=== PATIENT | female | born 1950 | race Asian ===

== ENCOUNTER 2016-09-18 13:05 | Outpatient (RCR) | payer MEDICARE, BC ==
[~2016-09-18 13:05] MED LIST: ALDACTONE 25MG25 M1 PO; FELODIPINE ER2.5 MG PO; FELODIPINE5 MG PO; LASIX10 MG/M1 PO; MULTIPLE VITAMI1 CAP PO; PHENERGAN W/CO120 ML PO; PLAVIX 75MG TAB75 MG PO; ST. JOHN'S WOR150 MG PO; SYNTHROID0.025 MG PO; ZITHROMAX 250M250 MG PO; ZOCOR5 MG PO
== END 2016-09-19 09:25 | disposition home or self-care (01) ==
LOC: MKS.ESL.PT 13:05
DX: H81.12 Benign paroxysmal vertigo, left ear (principal)
CPT/HCPCS: G8990-GP; G8991-GP; G8992-GP

== ENCOUNTER 2017-07-24 16:38 | Observation (INO) | payer MEDICARE, BC ==
[~2017-07-24] VITALS: Ht 160 cm; Wt 62.4 kg
[2017-07-24 17:27] LABS: MEAN CELL VOLUME 85 fl (80.0-100.0); MEAN CORPUSCULAR HGB CONC 34 g/dl (33.0-37.0); MEAN PLATELET VOLUME 10.9 fl (7.4-10.4); PARTIAL THROMBOPLASTIN TIME 25.6 SECONDS (26.0-37.0); PLATELET COUNT 74 K/mm3 (130-400); RED BLOOD COUNT 3.92 M/mm3 (4.10-5.30); REDCELL DISTRIBUTION WIDTH-CV 13.1 % (11.5-14.5)
[2017-07-24 17:28] LABS: HEMATOCRIT 33.4 % (37.0-47.0); HEMOGLOBIN 11.2 g/dl (12.5-16.0); MEAN CORPUSCULAR HEMOGLOBIN 29 pg (27.0-31.0)
[2017-07-24 17:32] LABS: ALANINE AMINOTRANSFERASE 34 U/L (9-52); ALBUMIN 4.9 gm/dL (3.5-5.0); ALKALINE PHOSPHATASE 269 U/L (50-136); ANION GAP 11 mmol/L (7-16); AST,SGOT 59 U/L (15-37); BILIRUBIN,TOTAL 0.3 mg/dL (0.0-1.0); BLOOD UREA NITROGEN 8 mg/dL (7-17); CALCIUM 9.6 mg/dL (8.4-10.2); CARBON DIOXIDE 25 mmol/L (22-30); CHLORIDE 97 mmol/L (98-107); GLUCOSE 172 mg/dL (74-106); LIPASE 232 U/L (23-300); POTASSIUM 3.7 mmol/L (3.4-5.0); SODIUM 133 mmol/L (137-145); TOTAL PROTEIN 8.1 gm/dL (6.4-8.2)
[2017-07-24 17:45] LABS: BAND 2 % (0-10); NEUTROPHILS 31 % (42.0-75.2)
[2017-07-24 17:46] LABS: LYMPHOCYTE 62 % (20.0-51.0); PLATELET ESTIMATE DECREASED (NORMAL)
[2017-07-24 17:50] LABS: TROPONIN-I < 0.012 ng/mL (0.000-0.034)
[2017-07-24 21:51] VITALS: BP 143/67; PULSE 82; TEMP 97.8
[2017-07-24 21:52] VITALS: BP 143/67; PULSE 82; TEMP 97.8
[2017-07-24] MEDS ORDERED: SYNTHROID0.05 MG/TA PO (22:22)
[2017-07-24] MEDS ORDERED: NORVASC2.5 MG PO (22:23)
[2017-07-24] MEDS ORDERED: BYSTOLIC10 MG PO (22:25)
[2017-07-24 23:57] VITALS: BP 147/72; PULSE 81; TEMP 97.5
[2017-07-25 01:15] LABS: C-REACTIVE PROTEIN 1.7 mg/dL (0.0-0.9)
[2017-07-25 03:18] VITALS: BP 122/56; PULSE 84; TEMP 97.7
[2017-07-25 06:57] LABS: MEAN CELL VOLUME 86 fl (80.0-100.0); MEAN CORPUSCULAR HGB CONC 34 g/dl (33.0-37.0); MEAN PLATELET VOLUME 10.8 fl (7.4-10.4); PLATELET COUNT 76 K/mm3 (130-400); RED BLOOD COUNT 3.85 M/mm3 (4.10-5.30); REDCELL DISTRIBUTION WIDTH-CV 13.1 % (11.5-14.5)
[2017-07-25 06:58] LABS: HEMATOCRIT 32.9 % (37.0-47.0); HEMOGLOBIN 11.1 g/dl (12.5-16.0); MEAN CORPUSCULAR HEMOGLOBIN 29 pg (27.0-31.0)
[2017-07-25 07:13] LABS: ALANINE AMINOTRANSFERASE 31 U/L (9-52); ALBUMIN 4.5 gm/dL (3.5-5.0); ALKALINE PHOSPHATASE 275 U/L (50-136); AST,SGOT 35 U/L (15-37); LACTATE DEHYDROGENASE 603 U/L (313-618); TOTAL PROTEIN 7.5 gm/dL (6.4-8.2)
[2017-07-25 07:23] LABS: TROPONIN-I < 0.012 ng/mL (0.000-0.034)
[2017-07-25 07:39] LABS: BAND 8 % (0-10); LYMPHOCYTE 41 % (20.0-51.0); METAMYELOCYTE 1 % (0-0); NEUTROPHILS 43 % (42.0-75.2); PLATELET ESTIMATE DECREASED (NORMAL)
[2017-07-25 07:41] LABS: HYPOCHROMIA 1+
[2017-07-25 07:42] LABS: ERYTHROCYTE SEDIMENTATION RATE 35 mm/hr (0-30)
[2017-07-25 08:08] VITALS: BP 121/53; PULSE 73; TEMP 97.8
[2017-07-25 08:12] LABS: BILIRUBIN UNCONJUGATED 0.3 mg/dL (0.0-1.1); BILIRUBIN,DIRECT 0.1 mg/dL (0.0-0.4); BILIRUBIN,TOTAL 0.4 mg/dL (0.0-1.0)
[2017-07-25 08:58] LABS: PATHOLOGY DIFF REVIEW OK +
[2017-07-25 10:53] VITALS: BP 138/61; PULSE 80; TEMP 97.7
[2017-07-25 16:56] LABS: FOLATE (FOLIC ACID) 15.2 ng/mL (7.0-31.4)
[2017-07-25 17:43] VITALS: BP 145/62; PULSE 88; TEMP 98.2
[2017-07-25 20:50] VITALS: BP 141/56; PULSE 88; TEMP 98.4
[2017-07-26 00:01] LABS: HEPATITIS B SURFACE ANTIGEN Negative (()); HEPATITIS C VIRUS ANTIBODY Negative (())
[2017-07-26 00:10] VITALS: BP 117/45; PULSE 83; TEMP 98.5
[2017-07-26 05:28] VITALS: BP 121/61; PULSE 80; TEMP 98.4
[2017-07-26 07:07] LABS: MEAN CELL VOLUME 86 fl (80.0-100.0); MEAN CORPUSCULAR HGB CONC 33 g/dl (33.0-37.0); MEAN PLATELET VOLUME 10.6 fl (7.4-10.4); PLATELET COUNT 61 K/mm3 (130-400); REDCELL DISTRIBUTION WIDTH-CV 13.2 % (11.5-14.5)
[2017-07-26 07:16] LABS: HEMOGLOBIN 10.2 g/dl (12.5-16.0); MEAN CORPUSCULAR HEMOGLOBIN 28 pg (27.0-31.0)
[2017-07-26 07:22] LABS: CALCIUM 8.4 mg/dL (8.4-10.2); CREATININE, serum 0.61 mg/dL (0.52-1.25); POTASSIUM 3.7 mmol/L (3.4-5.0)
[2017-07-26 08:04] LABS: BAND 7 % (0-10); LYMPHOCYTE 59 % (20.0-51.0); NEUTROPHILS 32 % (42.0-75.2); PLATELET ESTIMATE DECREASED (NORMAL)
[2017-07-26 09:47] LABS: EBV NUCLEAR ANTIGEN IGG Positive (())
[2017-07-26 12:22] VITALS: BP 153/69; PULSE 92; TEMP 98.7
[2017-07-26 12:50] LABS: EBV EARLY ANTIGEN IGG Positive (()); EBV IGM AB Negative (())
[2017-07-26 16:36] VITALS: BP 126/46; PULSE 91; TEMP 98.4
[2017-07-26 20:00] VITALS: BP 141/67; PULSE 98; TEMP 99.6
[2017-07-27 00:09] VITALS: BP 138/61; PULSE 93; TEMP 99
[2017-07-27 04:00] VITALS: BP 131/77; PULSE 84; TEMP 98.7
[2017-07-27 06:52] LABS: MEAN CELL VOLUME 85 fl (80.0-100.0); MEAN CORPUSCULAR HGB CONC 33 g/dl (33.0-37.0); MEAN PLATELET VOLUME 10.4 fl (7.4-10.4); PLATELET COUNT 64 K/mm3 (130-400); RED BLOOD COUNT 4.03 M/mm3 (4.10-5.30); REDCELL DISTRIBUTION WIDTH-CV 13.1 % (11.5-14.5)
[2017-07-27 06:55] LABS: HEMATOCRIT 34.4 % (37.0-47.0); HEMOGLOBIN 11.3 g/dl (12.5-16.0); MEAN CORPUSCULAR HEMOGLOBIN 28 pg (27.0-31.0)
[2017-07-27 07:18] LABS: CREATININE, serum 0.71 mg/dL (0.52-1.25); POTASSIUM 3.8 mmol/L (3.4-5.0)
[2017-07-27 07:30] LABS: BAND 5 % (0-10); BASOPHIL 1 % (0-2); HYPOCHROMIA 1+; LYMPHOCYTE 49 % (20.0-51.0); METAMYELOCYTE 1 % (0-0); NEUTROPHILS 29 % (42.0-75.2); NUCLEATED RED BLOOD CELL 4 (0-6); PLATELET ESTIMATE DECREASED (NORMAL)
[2017-07-27 08:18] VITALS: BP 132/70; PULSE 82; TEMP 98.6
[2017-07-27] MEDS ORDERED: FLEXERIL 1010 MG/TAB PO (11:12)
[2017-07-27 11:13] LABS: HIV 1/2 Antibodies Non-Reactive; HIV-1p24 Antigen Non-Reactive
[2017-07-27] MEDS ORDERED: ULTRAM 50MG TAB50 MG PO (11:15)
[2017-07-27] MEDS ORDERED: LIDODERM 5% PATC1 EA TP (11:15)
[2017-07-30] MEDS ORDERED: VOLTAREN GEL 1%1 TU TP ×2 (11:10→11:13)
== END 2017-07-27 13:15 | disposition home or self-care (01) ==
LOC: COL.ER 16:38 → MEDICAL 19:52
PROVIDERS: Emergency Medicine; Internal Medicine; Internal Medicine Infectious Disease; Physician Assistant
DX: M54.6 Pain in thoracic spine (principal); D61.818 Other pancytopenia; I10 Essential (primary) hypertension; E87.1 Hypo-osmolality and hyponatremia; R73.9 Hyperglycemia, unspecified; I25.10 Atherosclerotic heart disease of native coronary artery without angina pectoris; E03.9 Hypothyroidism, unspecified; Z88.8 Allergy status to other drugs, medicaments and biological substances; Z95.1 Presence of aortocoronary bypass graft; Z79.01 Long term (current) use of anticoagulants; Z90.710 Acquired absence of both cervix and uterus; Z82.49 Family history of ischemic heart disease and other diseases of the circulatory system
CPT/HCPCS: 99223-AI; 99232-AI; G0378; J1170; J1644; J2250; J2270; J2405; J2704; J3010; J7030; Q9967

== ENCOUNTER → 2017-07-31 | Outpatient (CLI) | payer MEDICARE, BC ==
[~2017-07-31] MED LIST changes: +BYSTOLIC10 MG PO; +FLEXERIL 1010 MG/TAB PO; +LIDODERM 5% PATC1 EA TP; +NORVASC2.5 MG PO; +SYNTHROID0.05 MG/TA PO; +ULTRAM 50MG TAB50 MG PO; +VOLTAREN GEL 1%1 TU TP
[2017-07-31 14:23] LABS: MEAN CELL VOLUME 84 fl (80.0-100.0); MEAN CORPUSCULAR HGB CONC 34 g/dl (33.0-37.0); MEAN PLATELET VOLUME 10.7 fl (7.4-10.4); RED BLOOD COUNT 4.22 M/mm3 (4.10-5.30); REDCELL DISTRIBUTION WIDTH-CV 13.3 % (11.5-14.5)
[2017-07-31 14:35] LABS: HEMATOCRIT 35.5 % (37.0-47.0); HEMOGLOBIN 11.9 g/dl (12.5-16.0); MEAN CORPUSCULAR HEMOGLOBIN 28 pg (27.0-31.0)
[2017-07-31 14:36] LABS: ALBUMIN 5.1 gm/dL (3.5-5.0); BILIRUBIN,TOTAL 0.5 mg/dL (0.0-1.0); CALCIUM 9.3 mg/dL (8.4-10.2); CREATININE, serum 0.57 mg/dL (0.52-1.25); TOTAL PROTEIN 8.8 gm/dL (6.4-8.2)
[2017-07-31 14:37] LABS: PLATELET COUNT 46 K/mm3 (130-400)
[2017-07-31 18:32] LABS: BAND 11 % (0-10); BASOPHIL 1 % (0-2); METAMYELOCYTE 1 % (0-0); MYELOCYTE 2 % (0-0); NEUTROPHILS 10 % (42.0-75.2); NUCLEATED RED BLOOD CELL 9 (0-6)
[2017-07-31 18:33] LABS: PLATELET ESTIMATE DECREASED (NORMAL)
[2017-07-31 18:41] LABS: LYMPHOCYTE 68 % (20.0-51.0)
[2017-07-31 23:25] LABS: IEPS IGA 329 mg/dL (69-517); IEPS IGG 1246 mg/dL (552-1631); IEPS TP 8.3 g/dL (6.0-7.6)
[2017-08-01 08:58] LABS: PATHOLOGY DIFF REVIEW OK +
[2017-08-01 13:34] LABS: ALBUMIN FRACTION 4.7 g/dL (2.6-4.5); ALBUMIN PERCENT 56.7 % (48.7-61.8); ALPHA 1 FRACTION 0.5 g/dL (0.3-0.5); ALPHA 1 PERCENT 5.5 % (3.4-8.3); BETA 1 FRACTION 0.5 g/dL (0.4-0.6); BETA 1 PERCENT 6.3 % (5.4-8.9); BETA 2 FRACTION 0.5 g/dL (0.2-0.5); BETA 2 PERCENT 5.9 % (3.8-7.7); IEPS GAMMA FRACTION 1.1 g/dL (0.4-1.7); IEPS GAMMA PERCENTAGE 13.6 % (8.1-23.0); IEPS IGM 73 mg/dL (33-293)
== END ==
LOC: COL.RAD 13:00 → COL.LAB 13:13 → COL.RAD 13:13
PROVIDERS: Internal Medicine
DX: K80.20 Calculus of gallbladder without cholecystitis without obstruction (principal); D61.818 Other pancytopenia; M54.5 Low back pain; M25.512 Pain in left shoulder
CPT/HCPCS: Q9967